=== PATIENT | male | born 1955 | race Caucasian/White ===

== ENCOUNTER 2018-03-27 07:43 | Day surgery (SDC) | payer OTHER ==
[2018-03-27] MEDS ORDERED: FENTAnyl 50 MCG/ML VIAL (10:46)
[2018-03-27] MEDS ORDERED: MIDAZOLAM 1 MG/ML 2 ML INJ ×2 (10:46)
== END 2018-03-27 11:41 | disposition home or self-care (01) ==
LOC: GIL 07:43
DX: Z12.11 Encounter for screening for malignant neoplasm of colon (principal); K64.8 Other hemorrhoids; K64.4 Residual hemorrhoidal skin tags
CPT/HCPCS: 45378